=== PATIENT | female | born 1965 | race African-American/Black ===

== ENCOUNTER 2017-05-17 20:36 | Emergency (ER) | payer MEDICARE, MEDICAID ==
[~2017-05-17] VITALS: Ht 182.9 cm; Wt 82.0 kg
[2017-05-18] MEDS ORDERED: HYDROCODONE/ACETAMINOPHEN 5/325MG TABLET PO PRN (00:30)
[2017-05-18] MEDS ORDERED: HYDROCODONE/ACETAMINOPHEN 5/325MG TABLET PO ONE (02:15)
[2017-05-18 02:32] VITALS: BP 112/67
== END 2017-05-18 02:54 | disposition home or self-care (01) ==
LOC: ER 20:36
DX: M25.562 Pain in left knee (principal); M79.642 Pain in left hand; I48.91 Unspecified atrial fibrillation; Z79.01 Long term (current) use of anticoagulants; I25.2 Old myocardial infarction; Z95.0 Presence of cardiac pacemaker; Z98.890 Other specified postprocedural states; W01.198A Fall on same level from slipping, tripping and stumbling with subsequent striking against other object, initial encounter; Y93.89 Activity, other specified; Y92.512 Supermarket, store or market as the place of occurrence of the external cause
CPT/HCPCS: 73130; 73562; 99284

== ENCOUNTER 2017-06-19 15:20 | Emergency (ER) | payer MEDICARE, MEDICAID ==
[~2017-06-19] VITALS: Ht 180.3 cm; Wt 75.0 kg
[2017-06-19 16:00] VITALS: BP 160/89
== END 2017-06-19 19:20 | disposition home or self-care (01) ==
LOC: ER 16:43
DX: M25.511 Pain in right shoulder (principal); E05.90 Thyrotoxicosis, unspecified without thyrotoxic crisis or storm; I48.91 Unspecified atrial fibrillation; I25.2 Old myocardial infarction; W19.XXXA Unspecified fall, initial encounter; Y93.89 Activity, other specified; Y92.89 Other specified places as the place of occurrence of the external cause; Y99.8 Other external cause status
CPT/HCPCS: 73030; 99284; A4565

== ENCOUNTER 2017-08-24 09:33 | Emergency (ER) | payer OTHER, MEDICAID ==
[~2017-08-24] VITALS: Ht 182.9 cm; Wt 86.0 kg
[2017-08-24] MEDS ORDERED: KETOROLAC 60MG/2ML VIAL IM STA (10:42)
[2017-08-24 12:26] VITALS: BP 148/94
== END 2017-08-24 13:45 | disposition home or self-care (01) ==
LOC: ER 10:26
DX: M19.011 Primary osteoarthritis, right shoulder (principal); I48.91 Unspecified atrial fibrillation; Z95.0 Presence of cardiac pacemaker; E05.90 Thyrotoxicosis, unspecified without thyrotoxic crisis or storm; Z86.73 Personal history of transient ischemic attack (TIA), and cerebral infarction without residual deficits
CPT/HCPCS: 73030; 96372; 99284; J1885

== ENCOUNTER 2020-06-08 11:13 | Inpatient (IN) | payer OTHER, MEDICAID ==
[~2020-06-08] VITALS: Ht 180.3 cm; Wt 90.3 kg
[2020-06-08 12:05] LABS: BASOPHILS % 0.6 % (0.0-2.0); EOSINOPHILS % 1.2 % (0.0-5.0); HEMATOCRIT. 37.2 % (36.0-48.0); HEMOGLOBIN. 12.5 g/dL (12.0-16.0); MEAN CORPUSCULAR HEMOGLOBIN 29.6 pg (28.0-32.0); MEAN PLATELET VOLUME 8.8 fl (7.4-10.4); MONOCYTES % 3.5 % (2.0-8.0); NEUTROPHILS % 74.7 % (40.0-76.0); PLATELET 178 x1000/uL (130-400); RED BLOOD CELL COUNT 4.23 mill/uL (4.2-5.4); RED CELL DISTRIBUTION WIDTH 14.3 % (11.6-14.6)
[2020-06-08 12:15] LABS: CHLORIDE 107 mEq/L (98-107)
[2020-06-08] MEDS ORDERED: ASPIRIN 325MG EC TABLET PO ONE (12:15)
[2020-06-08] MEDS ORDERED: MORPHINE SULFATE 4 MG/ML CPJ (NOT FOR IM USE) IV ONE ×2 (12:15→13:30)
[2020-06-08] MEDS ORDERED: NA PHOS,M-B/NA PHOS,DI-BA ENEMA 118ML PR PRN (16:15)
[2020-06-08] MEDS ORDERED: NITROGLYCERIN OINT 1GM/INCH UDPKT TD NR (16:15)
[2020-06-08] MEDS ORDERED: ACETAMINOPHEN 650MG SUPP PR PRN (16:15)
[2020-06-08] MEDS ORDERED: CLONIDINE 0.1MG TABLET PO PRN (16:15)
[2020-06-08] MEDS ORDERED: MAGNESIUM/ALUMINUM HYDROXIDE/SIMETHICONE 30ML UDC PO PRN (16:15)
[2020-06-08] MEDS ORDERED: DOCUSATE SODIUM 100MG CAPSULE PO PRN (16:15)
[2020-06-08] MEDS ORDERED: DIPHENHYDRAMINE 50MG/ML VIAL IV PRN (16:15)
[2020-06-08] MEDS ORDERED: GUAIFENESIN 200MG/10ML SUGAR FREE UDC PO PRN (16:15)
[2020-06-08] MEDS ORDERED: LORAZEPAM 0.5MG TABLET PO PRN (16:15)
[2020-06-08] MEDS ORDERED: ACETAMINOPHEN 325MG TABLET PO PRN (16:15)
[2020-06-08] MEDS ORDERED: ONDANSETRON HCL 4MG/2ML INJ IV PRN (16:15)
[2020-06-08] MEDS ORDERED: IPRATROPIUM/ALBUTEROL 0.5-3(2.5)MG/3ML NEB NEB PRN (16:15)
[2020-06-08] MEDS ORDERED: ENOXAPARIN 40MG/0.4ML SYR SUBCUT SCH (17:00)
[2020-06-08] MEDS ORDERED: ENOXAPARIN 60MG/0.6ML SYR SUBCUT NR (17:45)
[2020-06-08 17:47] VITALS: BP 159/75
[2020-06-08 18:07] LABS: D-DIMER 0.72 mg/L FEU (<0.50); PROTHROMBIN TIME 10.7 sec (9.6-11.0)
[2020-06-08] MEDS: MORPHINE SULFATE 2 MG/ML CPJ (NOT FOR IM USE) IV PRN (18:32)
[2020-06-08] MEDS ORDERED: METO-539 PO (18:57)
[2020-06-08] MEDS ORDERED: LIP40 PO (18:57)
[2020-06-08] MEDS ORDERED: LEVO100T PO (18:57)
[2020-06-08] MEDS ORDERED: ASPI-1497 PO (18:57)
[2020-06-08] MEDS ORDERED: HYDR25TA PO (18:57)
[2020-06-08] MEDS: ATORVASTATIN CALCIUM 40MG TABLET PO SCH (20:16)
[2020-06-08] MEDS: FAMOTIDINE 20MG TABLET PO SCH (20:17)
[2020-06-08] MEDS: HYDROCODONE/ACETAMINOPHEN 5/325MG TABLET PO PRN (20:17)
[2020-06-09 00:13] LABS: CREATINE KINASE 43 IU/L (26-192)
[2020-06-09 00:14] LABS: CREATINE KINASE MB FRACTION < 1.0 ng/mL (0.5-3.6)
[2020-06-09 00:29] VITALS: BP 104/66
[2020-06-09] MEDS: SODIUM CHLORIDE 0.9% 1,000 ML IV SCH ×2 (00:33→12:30)
[2020-06-09] MEDS: MORPHINE SULFATE 2 MG/ML CPJ (NOT FOR IM USE) IV PRN ×4 (00:51→22:18)
[2020-06-09 04:00] VITALS: BP 130/82
[2020-06-09 06:23] LABS: BASOPHILS % 0.5 % (0.0-2.0); EOSINOPHILS % 1.7 % (0.0-5.0); HEMOGLOBIN. 11.6 g/dL (12.0-16.0); LYMPHOCYTES % 39.2 % (20.0-50.0); MEAN CORPUSCULAR HEMOGLOBIN 29.9 pg (28.0-32.0); MEAN CORPUSCULAR VOLUME 87.9 fL (81.0-99.0); MEAN PLATELET VOLUME 8.9 fl (7.4-10.4); MONOCYTES % 4.3 % (2.0-8.0); NEUTROPHILS % 54.3 % (40.0-76.0); PLATELET 165 x1000/uL (130-400); RED BLOOD CELL COUNT 3.87 mill/uL (4.2-5.4); RED CELL DISTRIBUTION WIDTH 14.7 % (11.6-14.6)
[2020-06-09 06:32] LABS: CHLORIDE 106 mEq/L (98-107)
[2020-06-09] MEDS: LEVOTHYROXINE SODIUM 100MCG TABLET PO SCH (06:42)
[2020-06-09] MEDS: NITROGLYCERIN 0.4MG TABLET SL SL PRN ×3 (06:42→09:00)
[2020-06-09 06:44] LABS: LDL CHOLESTEROL 102 mg/dL (5-100)
[2020-06-09 06:45] LABS: CREATINE KINASE 39 IU/L (26-192); CREATINE KINASE MB FRACTION < 1.0 ng/mL (0.5-3.6); HDL CHOLESTEROL 51 mg/dL (40-59)
[2020-06-09 06:46] LABS: T4 FREE 1.06 ng/dL (0.76-1.46)
[2020-06-09 08:00] VITALS: BP 121/71
[2020-06-09] MEDS: METOPROLOL TARTRATE 50MG TABLET PO SCH ×2 (08:43→20:16)
[2020-06-09] MEDS: ASPIRIN 81MG EC TABLET PO SCH (08:44)
[2020-06-09] MEDS: HYDROCHLOROTHIAZIDE 12.5MG CAPSULE PO SCH (08:44)
[2020-06-09] MEDS: ENOXAPARIN 100MG/ML SYR SUBCUT SCH ×2 (08:44→20:16)
[2020-06-09 12:00] VITALS: BP 115/78
[2020-06-09] MEDS ORDERED: DEXT 5%/0.45% NACL 1000ML 1,000 ML IV SCH (15:00)
[2020-06-09 16:00] VITALS: BP 117/61
[2020-06-09] MEDS ORDERED: IOHEXOL-350 100 ML BOTTLE ONE (19:35)
[2020-06-09 20:00] VITALS: BP 127/88
[2020-06-09] MEDS: FAMOTIDINE 20MG TABLET PO SCH (20:15)
[2020-06-09] MEDS: ATORVASTATIN CALCIUM 40MG TABLET PO SCH (20:15)
[2020-06-09] MEDS: HYDROCODONE/ACETAMINOPHEN 5/325MG TABLET PO PRN (23:55)
[2020-06-10] VITALS: BP 117/68
[2020-06-10 04:00] VITALS: BP 121/77
[2020-06-10] MEDS: LEVOTHYROXINE SODIUM 100MCG TABLET PO SCH (06:12)
[2020-06-10 06:53] LABS: BASOPHILS % 0.4 % (0.0-2.0); EOSINOPHILS % 2.1 % (0.0-5.0); HEMATOCRIT. 35.9 % (36.0-48.0); HEMOGLOBIN. 12.3 g/dL (12.0-16.0); MEAN CORPUSCULAR VOLUME 87.7 fL (81.0-99.0); MEAN PLATELET VOLUME 8.8 fl (7.4-10.4); NEUTROPHILS % 45.5 % (40.0-76.0); PLATELET 164 x1000/uL (130-400); RED CELL DISTRIBUTION WIDTH 14.9 % (11.6-14.6)
[2020-06-10 07:23] LABS: CHLORIDE 108 mEq/L (98-107)
[2020-06-10 08:39] VITALS: BP 116/84
[2020-06-10] MEDS: MORPHINE SULFATE 2 MG/ML CPJ (NOT FOR IM USE) IV PRN ×3 (08:43→18:37)
[2020-06-10] MEDS: ASPIRIN 81MG EC TABLET PO SCH (09:10)
[2020-06-10] MEDS: HYDROCHLOROTHIAZIDE 12.5MG CAPSULE PO SCH (09:10)
[2020-06-10] MEDS: METOPROLOL TARTRATE 50MG TABLET PO SCH ×2 (09:10→21:59)
[2020-06-10] MEDS: ENOXAPARIN 100MG/ML SYR SUBCUT SCH ×2 (09:11→21:00)
[2020-06-10 12:00] VITALS: BP 120/79
[2020-06-10 16:00] VITALS: BP 125/69
[2020-06-10 20:00] VITALS: BP 118/64
[2020-06-10] MEDS: FAMOTIDINE 20MG TABLET PO SCH (21:58)
[2020-06-10] MEDS: ATORVASTATIN CALCIUM 40MG TABLET PO SCH (21:59)
[2020-06-11] VITALS: BP 105/63
[2020-06-11] MEDS: DEXT 5%/0.45% NACL 1000ML 1,000 ML IV SCH ×2 (00:22→10:00)
[2020-06-11] MEDS: MORPHINE SULFATE 2 MG/ML CPJ (NOT FOR IM USE) IV PRN ×3 (00:37→12:42)
[2020-06-11 05:49] LABS: CHLORIDE 106 mEq/L (98-107)
[2020-06-11 05:53] LABS: HEMATOCRIT 36.1 % (36.0-48.0); HEMOGLOBIN 12.4 g/dL (12.0-16.0); MEAN CORPUSCULAR HEMOGLOBIN 29.9 pg (28.0-32.0); MEAN CORPUSCULAR VOLUME 87.1 fL (81.0-99.0); PLATELET 171 x1000/uL (130-400); RED BLOOD CELL COUNT 4.15 mill/uL (4.2-5.4); RED CELL DISTRIBUTION WIDTH 14.8 % (11.6-14.6)
[2020-06-11] MEDS: LEVOTHYROXINE SODIUM 100MCG TABLET PO SCH (06:23)
[2020-06-11 08:00] VITALS: BP 133/87
[2020-06-11] MEDS: ENOXAPARIN 100MG/ML SYR SUBCUT SCH (08:48)
[2020-06-11] MEDS: ASPIRIN 81MG EC TABLET PO SCH (08:48)
[2020-06-11] MEDS: METOPROLOL TARTRATE 50MG TABLET PO SCH (08:53)
[2020-06-11] MEDS: HYDROCHLOROTHIAZIDE 12.5MG CAPSULE PO SCH (08:53)
[2020-06-11] MEDS ORDERED: MIDAZOLAM HCL 2 MG/2 ML VIAL ONE (08:57)
[2020-06-11] MEDS ORDERED: LIDOCAINE HCL 1% 20ML VIAL (Pyxis) INJ ONE (08:57)
[2020-06-11] MEDS ORDERED: FENTANYL CITRATE/PF 50MCG/ML 2ML VIAL ONE (08:58)
[2020-06-11] MEDS ORDERED: IODIXANOL 320MG/ML 100 ML BOTTLE IV ONE (08:58)
[2020-06-11] MEDS ORDERED: DOPAMINE 400MG/250ML PREMIX 0 ML IV ONE (09:29)
[2020-06-11] MEDS ORDERED: IOHEXOL-300 100 ML BOTTLE ONE (09:36)
[2020-06-11] MEDS ORDERED: HEPARIN SODIUM 1,000 UNIT/1ML VIAL IV ONE (11:12)
[2020-06-11 12:40] VITALS: BP 108/68
[2020-06-11 13:54] VITALS: BP 108/68
[2020-06-11 16:00] VITALS: BP 125/91
== END 2020-06-11 20:20 | disposition home or self-care (01) | DRG 287 ==
LOC: ER 11:13 → 8WST 13:20 → SUPCPDRO 13:23 → EDBEDREQ 13:31 → EDBEDREQTM 13:31 → ENRESERV 14:20
PROVIDERS: ADMIT Internal Medicine; ATTEND Internal Medicine
PROC: 4A023N7 Measurement of Cardiac Sampling and Pressure, Left Heart, Percutaneous Approach (ICD-10-PCS; principal; 2020-06-11)
PROC: B2111ZZ Fluoroscopy of Multiple Coronary Arteries using Low Osmolar Contrast (ICD-10-PCS; 2020-06-11)
PROC: B2151ZZ Fluoroscopy of Left Heart using Low Osmolar Contrast (ICD-10-PCS; 2020-06-11)
DX: I25.110 Atherosclerotic heart disease of native coronary artery with unstable angina pectoris (principal); I50.20 Unspecified systolic (congestive) heart failure; E03.9 Hypothyroidism, unspecified; I11.0 Hypertensive heart disease with heart failure; E78.5 Hyperlipidemia, unspecified; I49.5 Sick sinus syndrome; R73.9 Hyperglycemia, unspecified; Z20.828 Contact with and (suspected) exposure to other viral communicable diseases; Z96.651 Presence of right artificial knee joint; I48.0 Paroxysmal atrial fibrillation; Z95.0 Presence of cardiac pacemaker; I25.2 Old myocardial infarction; Z86.73 Personal history of transient ischemic attack (TIA), and cerebral infarction without residual deficits; Z82.3 Family history of stroke; Z82.49 Family history of ischemic heart disease and other diseases of the circulatory system; Z79.82 Long term (current) use of aspirin; Z79.899 Other long term (current) drug therapy
CPT/HCPCS: 36415; 71045; 71275; 80048; 80053; 80061; 82550; 82553; 83036; 83880; 84439; 84443; 84484; 85025; 85027; 85379; 93005; 93306; 93458; 93970; 99285; C1769; C1887; C1893; J1265; J1644; J1650; J2250; J2270; J3010; J3490; J7030; Q9967; U0003-CS

== ENCOUNTER 2023-12-23 20:16 | Emergency (ER) | payer MEDICARE, MEDICAID ==
[~2023-12-23] VITALS: Ht 180.3 cm; Wt 90.4 kg
[~2023-12-23 20:16] MED LIST: ASPI-1497 PO; HYDR25TA PO; LEVO100T PO; LIP40 PO; METO-539 PO
[2023-12-23 20:18] VITALS: O2SAT 100
[2023-12-23 22:08] LABS: BASOPHILS % 0.4 % (0.0-2.0); EOSINOPHILS % 0.8 % (0.0-5.0); HEMATOCRIT. 36.8 % (36.0-48.0); HEMOGLOBIN. 12.7 g/dL (12.0-16.0); LYMPHOCYTES % 41.6 % (20.0-50.0); MEAN CORPUSCULAR HEMOGLOBIN 30.3 pg (28.0-32.0); MEAN CORPUSCULAR HGB CONC 34.4 g/dL (31.0-37.0); MEAN CORPUSCULAR VOLUME 87.9 fL (81.0-99.0); MONOCYTES % 3.7 % (2.0-8.0); NEUTROPHILS % 53.5 % (40.0-76.0); PLATELET 185 x1000/uL (130-400); RED BLOOD CELL COUNT 4.18 mill/uL (4.2-5.4); RED CELL DISTRIBUTION WIDTH 14.5 % (11.6-14.6); WHITE BLOOD COUNT 3.4 x1000/uL (4.5-11.0)
[2023-12-23 22:30] LABS: ALANINE AMINOTRANSFERASE 10 IU/L (10-49); ALBUMIN 4.3 g/dL (3.2-4.8); ASPARTATE AMINOTRANSFERASE 15 IU/L (<34); BILIRUBIN TOTAL 0.4 mg/dL (0.1-1.0); CALCIUM 9.4 mg/dL (8.7-10.4); CARBON DIOXIDE 27 mEq/L (21-32); CHLORIDE 106 mEq/L (98-107); CREATININE 0.9 mg/dL (0.6-1.0); GLUCOSE 155 mg/dL (70-105); POTASSIUM 3.5 mEq/L (3.5-5.1); PROTEIN TOTAL 7.4 g/dL (6.0-8.3); SODIUM 140 mEq/L (136-145); TROPONIN I HIGH SENSITIVITY 5 ng/L (3.0-34); UREA NITROGEN BLOOD 12 mg/dL (9-23)
[2023-12-23 23:11] VITALS: BP 133/74; PULSE 69; RESP 18; TEMP 98.6
[2023-12-23] MEDS: ASPIRIN 81MG TABLET PO ONE (23:20)
[2023-12-23] MEDS: NITROGLYCERIN 0.4MG TABLET SL SL PRN (23:22)
== END 2023-12-23 23:20 | disposition home or self-care (01) ==
LOC: ER 20:16
DX: R07.89 Other chest pain (principal); I25.2 Old myocardial infarction; I10 Essential (primary) hypertension; Z86.73 Personal history of transient ischemic attack (TIA), and cerebral infarction without residual deficits
CPT/HCPCS: 36415; 71045; 80053; 83880; 84484; 85025; 93005; 99284

== ENCOUNTER 2024-07-29 13:46 | Emergency (ER) | payer OTHER, MEDICAID ==
[~2024-07-29] VITALS: Ht 182.9 cm; Wt 75.0 kg
[2024-07-29 13:50] VITALS: PULSE 76; RESP 19; O2SAT 100
[2024-07-29 13:53] VITALS: BP 122/62; TEMP 98.2; O2SAT 98
== END 2024-07-29 16:07 | disposition home or self-care (01) ==
LOC: ER 13:46
DX: M25.511 Pain in right shoulder (principal); I48.91 Unspecified atrial fibrillation; I25.2 Old myocardial infarction; I10 Essential (primary) hypertension; Z86.73 Personal history of transient ischemic attack (TIA), and cerebral infarction without residual deficits; Z79.82 Long term (current) use of aspirin; Z98.890 Other specified postprocedural states; Z98.51 Tubal ligation status
CPT/HCPCS: 73030; 99283